=== PATIENT | male | born 2000 | race African-American/Black ===

== ENCOUNTER 2021-10-08 01:26 | Emergency (ER) | payer MEDICAID, OTHER ==
[~2021-10-08] VITALS: Ht 185 cm; Wt 95.0 kg
[2021-10-08] MEDS ORDERED: LIDOCAINE/EPI 2% 1:100,00 (XYLOCAINE) 20 ML VIAL INJ ONE (02:45)
[2021-10-08] MEDS ORDERED: TETANUS,DIPTH,PERTUSS P/F (BOOSTRIX) 0.5 ML VIAL IM ONE (02:45)
--- NOTE | 2021-10-08 02:49 | ED Integumentary General ---
General Chief Complaint: Trauma-Non Activation Stated Complaint: LAC ON CHIN;BLEEDING Nursing Triage Note: patient fell on ice, chin laceration, chipped teeth Source: patient Exam Limitations: no limitations History of Present Illness Date Seen by Provider: Oct 08, 2021 Time Seen by Provider: 02:35 Initial Comments Patient is a 21-year-old male who was walking this evening, slipped on some ice fell and hit his chin on the ground. Sustained a laceration to the right side under his chin. Did not have loss of consciousness. Denies any other complaints of injury. Has a little bit of musculoskeletal neck pain. Mild headache. Not nauseous. No visual changes. No numbness tingling or weakness in his extremities. No loss of bowel or bladder function. Does not take any daily medications, otherwise healthy. Thinks his last tetanus shot was sometime in 2012 or All other review of systems reviewed and negative except as stated. Timing/Duration: just prior to arrival Severity: moderate Location: face (Chin) Possible Cause: other (Fall) Associated Symptoms: other (Mild headache, musculoskeletal neck) Allergies and Home Medications Allergies Coded Allergies: No Known Drug Allergies (Unverified , 10/08/21) Patient Home Medication List Home Medication List Reviewed: Yes Review of Systems Review of Systems Constitutional: see HPI EENTM: other (Complains of some chipped teeth) Respiratory: no symptoms reported Cardiovascular: no symptoms reported Gastrointestinal: no symptoms reported Genitourinary: no symptoms reported Musculoskeletal: neck pain Skin: other (Lacerate) Psychiatric/Neurological: Headache (Mild) All Other Systems Reviewed Negative Unless Noted: Yes Past Ilbeyel-Umxwlz-Mrdfwo Hx Immunizations Up To Date First/Initial COVID19 Vaccinat: no Second COVID19 Vaccination Niraj: no Third COVID19 Vaccination Date: no COVID19 Vaccine Security Manager: no Physical Exam Vital Signs Vital Signs - First Documented 10/08/21 01:43 Temp 36.7 Pulse 73 Resp 18 Pulse Ox 99 O2 Delivery Room Air Capillary Refill : Less Than 3 Seconds General Appearance: WD/WN, no apparent distress HEENT: PERRL/EOMI, other (Chipped teeth) Neck: non-tender, full range of motion, supple, normal inspection Cardiovascular: regular rate, rhythm Respiratory: lungs clear, normal breath sounds, no respiratory distress, no accessory muscle use Gastrointestinal: non tender, soft Extremities: normal range of motion, non-tender, normal inspection, no pedal edema, no calf tenderness Neurologic/Psychiatric: runner out II-XII nml as tested, no motor/sensory deficits, alert, normal mood/affect, oriented x 3 Skin: normal color, warm/dry Skin Problem Location: other (4 cm gaping laceration to the right of midline under the chin, through the subcu tissues and into deep tissues at the very ce nter. No active bleeding.) Procedures/Interventions Wound Location: Face Other Wound Location chin Wound Length (cm): 4 Wound's Depth, Shape: superficial, into muscle, linear Wound Explored: clean Irrigated w/ Saline (ccs): 200 Betadine Prep?: No Anesthesia: Lidocaine w/ Epi (3.5) Volume Anesthetic (ccs): 3 Suture: Chromic (5-0), Prolene (5-0) Suture Size: 5-0 Number of Sutures: 7 Layer Closure?: 2 Number Deep Layer Sutures: 1 Sterile Dressing Applied?: No Progress/Results/Core Measures Results/Orders My Orders Orders - MITA ROLON MD Lidocaine/Epi 2% 1:100,000 (Xylocaine/Ep (10/08/21 02:45) Dipht,Pertuss(Acell),Tet Adult (Boostrix (10/08/21 02:45) Vital Signs/I&O 10/08/21 01:43 Temp 36.7 Pulse 73 Resp 18 B/P (MAP) Pulse Ox 99 O2 Delivery Room Air Departure Impression Primary Impression: Facial laceration Qualified Codes: S01.81XA - Laceration without foreign body of other part of head, initial encounter Disposition: 01 HOME, SELF-CARE Condition: Stable Departure-Patient Inst. Decision time for Depature: 02:48 Referrals: NO,LOCAL PHYSICIAN (PCP/Family) Primary Care Physician Patient Instructions: Laceration Repair With Stitches ED Add. Discharge Instructions: You can wash the sutured area with soap and water daily. Apply a little triple antibiotic ointment twice a day for the next couple of days. The stitches will need to come out in 7 days. You can return to the emergency room to have the sutures removed. Come back sooner if you note any signs or symptoms of infection such as swelling, drainage of pus, redness or fever. You can take Tylenol and/or ibuprofen as needed for headache and musculoskeletal pain. MITA ROLON MD Oct 08, 2021 02:49
== END 2021-10-08 03:44 | disposition home or self-care (01) ==
LOC: ER 01:29
DX: S01.81XA Laceration without foreign body of other part of head, initial encounter (principal); Z23 Encounter for immunization; W00.9XXA Unspecified fall due to ice and snow, initial encounter
CPT/HCPCS: 90715; 99281

== ENCOUNTER 2021-10-15 11:55 | Emergency (ER) | payer MEDICAID ==
[~2021-10-15] VITALS: Ht 185.5 cm; Wt 93.4 kg
[2021-10-15 12:37] VITALS: BP 133/74
== END 2021-10-15 12:46 | disposition home or self-care (01) ==
LOC: EDUNIT# 11:55 → ER 11:59
DX: Z48.02 Encounter for removal of sutures (principal)

== ENCOUNTER 2022-08-06 20:43 | Emergency (ER) | payer MEDICAID ==
--- NOTE | 2022-08-06 21:13 | ED Upper Extremity ---
General Chief Complaint: Upper Extremity Stated Complaint: RING STUCK ON LT RING [id number] Nursing Triage Note: PT ARRIVAL TO ER VIA PRIVATE VEHICLE FROM HOME WITH COMPLAINT OF RING STUCK ON 4TH FINGER X4 DAYS. SOME SWELLING TO DISTAL FINGER. PATIENT HAS TRIED MULTIPLE WAYS OF GETTING THE RING OFF. WINDEX, LUBRICANT, STRING TRICK, AND ICING FINGER. Source: patient Exam Limitations: no limitations History of Present Illness Date Seen by Provider: Aug 06, 2022 Time Seen by Provider: 21:10 Initial Comments To ER by private vehicle with reports of a ring stuck on the left ring finger for 3 days. He is try to get it off with Windex and soap without success. Has numbness sensation in his finger. Onset: just prior to arrival Severity: moderate Pain/Injury Location: left 5th finger Allergies and Home Medications Allergies Coded Allergies: No Known Drug Allergies (Unverified , 10/08/21) Patient Home Medication List Home Medication List Reviewed: Yes Review of Systems Constitutional: see HPI EENTM: see HPI Respiratory: no symptoms reported Cardiovascular: no symptoms reported Genitourinary: no symptoms reported Musculoskeletal: see HPI Skin: no symptoms reported Psychiatric/Neurological: No Symptoms Reported Past Adabbfy-Smeznu-Mcrvjq Hx Patient Social History Tobacco Use?: No Use of E-Cig and/or Vaping dev: No Substance use?: No Alcohol Use?: No Pt feels they are or have been: No Immunizations Up To Date Influenza Vaccine Up-to-Date: Yes; Up-to-Date First/Initial COVID19 Vaccinat: no Second COVID19 Vaccination Niraj: UNKNOWN Third COVID19 Vaccination Date: no COVID19 Vaccine Time 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 oz. kg; 27.00 BMI Method:Actual General Appearance: WD/WN, no apparent distress Respiratory: no respiratory distress, no accessory muscle use Shoulder: normal inspection, non-tender Elbow/Forearm: normal inspection, non-tender Wrist: Yes normal inspection, Yes non-tender Hand: Left, swelling (Just distal to the ring on the left ring finger is edema and erythema localized to the first phalanx. There is brisk capillary refill at the fingertip though he does report a numbness sensation. There is no swelling to the middle or distal phalanx. Proximally no erythema or swelling. Try to remove this ring with ring cutters without success, then tried the ring cutters on the back of a pair of trauma dev without success and ended up using a Dremel with a marco bit. Was able to cut the ring in 2 places without any injury to the skin. We dripped saline on this during cutting to keep it cool.) Neurologic/Psychiatric: alert, normal mood/affect, oriented x 3 Skin: normal color, warm/dry Procedures/Interventions Suture Size: 5-0 Progress/Results/Core Measures Results/Orders Vital Signs/I&O 08/06/22 20:50 Temp 36.4 Pulse 73 Resp 16 B/P (MAP) 124/81 (95) Pulse Ox 99 O2 Delivery Room Air Blood Pressure Mean: 95 Departure Impression Primary Impression: Foreign body finger Disposition: HOME, SELF-CARE Condition: Stable Departure-Patient Inst. Decision time for Depature: 21:12 Referrals: NO,LOCAL PHYSICIAN (PCP/Family) Primary Care Physician Patient Instructions: NO INSTRUCTIONS GIVEN MARIE CHAVIRA APRN Aug 06, 2022 21:13
[2022-08-06 21:18] VITALS: BP 124/81
== END 2022-08-06 21:18 | disposition home or self-care (01) ==
LOC: EDUNIT# 20:43 → ER 20:45
DX: S60.455A Superficial foreign body of left ring finger, initial encounter (principal); W49.04XA Ring or other jewelry causing external constriction, initial encounter
CPT/HCPCS: 99281